=== PATIENT | male | born 1980 | race African-American/Black ===

== ENCOUNTER 2018-11-19 17:48 | Emergency (ER) | payer OTHER ==
[~2018-11-19] VITALS: Ht 172.7 cm; Wt 84.1 kg
[2018-11-19] MEDS ORDERED: NAPROSYN500 MG PO (18:58)
[2018-11-19 19:13] VITALS: BP 131/87
== END 2018-11-19 19:13 | disposition home or self-care (01) | DRG 563 ==
LOC: ED 17:48
DX: S43.402A Unspecified sprain of left shoulder joint, initial encounter (principal); V18.0XXA Pedal cycle driver injured in noncollision transport accident in nontraffic accident, initial encounter; Y93.55 Activity, bike riding; Y92.833 Campsite as the place of occurrence of the external cause